=== PATIENT | female | born 1975 | race Asian ===

== ENCOUNTER 2021-05-07 14:19 | Emergency (ER) | payer BC ==
[~2021-05-07] VITALS: Ht 154.9 cm; Wt 54.4 kg
[2021-05-07 14:20] VITALS: BP_SYST 105
--- NOTE | 2021-05-07 14:27 | NUR ---
BROUGHT BACK TO BED #7 AND TRIAGED. REPORT GIVEN TO YOLETTE
[2021-05-07] MEDS ORDERED: KETOROLAC TROMETHAMINE 60 MG/2 ML VIAL IM ONE (14:30)
[2021-05-07] MEDS ORDERED: ACETAMINOPHEN 500 MG TABLET PO ONE (14:30)
[2021-05-07] MEDS ORDERED: CYCLOBENZAPRINE HCL 10 MG TABLET (FLEXERIL) PO ONE (14:30)
--- NOTE | 2021-05-07 14:30 | NUR ---
PT CAME IN FROM HOME FOR RIGHT SIDED HIP PAIN RADIATING DOWN LEG. PT REPORTS GOING TO URGENT CARE TODAY AND WAS GIVEN STEROIDS HOWEVER PAIN HAS NOT IMPROVED. PAIN WITH WALKING, DRIVING. PT IS AMBULATORY, AAOX4, VSS
--- NOTE | 2021-05-07 14:37 | NUR ---
DR MOSQUEDA AT BEDSIDE FOR EVALUATION
--- NOTE | 2021-05-07 15:30 | NUR ---
Patient resting quietly. No acute distress noted. Vital signs within normal range.
[2021-05-07] MEDS ORDERED: LIDOCAINE PATCH 5% 1 EA TP ONE (16:00)
[2021-05-07] MEDS ORDERED: GABAPENTIN 300 MG CAPSULE PO ONE (16:00)
[2021-05-07] MEDS ORDERED: DIAZEPAM 5 MG TABLET (VALIUM) PO ONE (16:00)
--- NOTE | 2021-05-07 16:30 | NUR ---
Patient resting quietly. No acute distress noted. Vital signs within normal range.
[2021-05-07] MEDS ORDERED: CYCL10TA24 PO (17:05)
[2021-05-07] MEDS ORDERED: IBUP-1969 PO (17:05)
[2021-05-07] MEDS ORDERED: ACET-2634 PO (17:05)
[2021-05-07] MEDS ORDERED: LIDO700A30 TP (17:05)
[2021-05-07 17:12] VITALS: BP_SYST 105
--- NOTE | 2021-05-07 17:20 | NUR ---
Patient given written and verbal discharge instructions and verbalizes understanding. ER MD discussed with patient the results and treatment provided. Patient in stable condition. ID arm band removed. Rx of TYLENOL XTRA STRENGTH, FLEXERIL, IBUPROFEN AND LIDOCAINE given. Patient educated on pain management and to follow up with PMD. Pain Scale 0/10. Opportunity for questions provided and answered. Medication side effect fact sheet provided.
--- NOTE | 2021-05-07 17:39 | NUR ---
Note undone in EDM - 05/07/21 at 1741 by [email or web address] Patient given written and verbal discharge instructions and verbalizes understanding. ER discussed with patient the results and treatment provided. Patient in stable condition. ID arm band removed. Rx of TYLEOL XTRA STRENGTH, FLEXERIL, IBUPROFEN, LIDOCAINE PATCH given. Patient educated on pain management and to follow up with PMD. Pain Scale 4/10. Opportunity for questions provided and answered. Medication side effect fact sheet provided.
== END 2021-05-07 17:12 | disposition home or self-care (01) ==
LOC: SED 14:19
DX: M54.41 Lumbago with sciatica, right side (principal)
CPT/HCPCS: 96372; 99284; J1885